=== PATIENT | male | born 1950 | race Caucasian/White ===

== ENCOUNTER 2020-02-25 08:56 | Outpatient (REF) | payer BC, SELFPAY | END 2020-02-25 08:57 | disposition home or self-care (01) | LOC: HO.LAB 08:56 | PROVIDERS: PCP Internal Medicine; Referring Provider Internal Medicine; Visit Provider Urology | DX: R35.1 Nocturia (principal); N40.1 Benign prostatic hyperplasia with lower urinary tract symptoms; N13.8 Other obstructive and reflux uropathy; C67.9 Malignant neoplasm of bladder, unspecified | CPT/HCPCS: 52000; 88112 ==

== ENCOUNTER 2020-03-30 13:30 | Outpatient (RCR) | payer BC, SELFPAY ==
[2020-03-16 13:56] LABS: Glucose Urine UA NEG (NEG); Leukocyte Esterase Urine NEG (NEG); Nitrite Urine NEG (NEG); Urine Blood NEG (NEG); Urine Ketones NEG (NEG); Urine Protein NEG (NEG-TRACE)
[2020-03-16 13:57] VITALS: BMI 19.3
[2020-03-16 13:58] VITALS: BP 158/75; PULSE 53; RESP 18; TEMP 37; O2SAT 99
[2020-03-16 14:02] LABS: Appearance Urine CLEAR; Color Urine YELLOW
[2020-03-16 14:10] LABS: RBC Urine 0 /HPF (0); WBC Urine 0-2 /HPF (0-4)
[2020-03-16] MEDS: Lidocaine HCl 2 % Urojet 10 ML JEL.PF.APP TOPICAL (14:23)
--- NOTE | 2020-03-16 16:38 | MHC.HEMONC ---
Pt here to restart Intravesicular Gemcitabine per Dr Mcdaniel. U/A obtained and looked good. Results securely sent to Dr Mcdaniel for review. OK to proceed. Pt tolerated procedure well. He did a small void in urinal post procedure. His is aware of all post procedure protocols as pt has dementia.
[2020-03-23 14:04] LABS: Glucose Urine UA NEG (NEG); Leukocyte Esterase Urine NEG (NEG); Nitrite Urine NEG (NEG); Specific Gravity - Urine 1.015 (1.005-1.025); Urine Blood NEG (NEG); Urine Ketones NEG (NEG); Urine Protein NEG (NEG-TRACE)
[2020-03-23 14:05] LABS: Appearance Urine HAZY; Color Urine YELLOW
[2020-03-23 14:13] LABS: Amorphous Sediment Urine 1+ /LPF; WBC Urine 0 /HPF (0-4)
[2020-03-23 14:28] VITALS: BMI 19.5
[2020-03-23 14:30] VITALS: BP 113/58; PULSE 58; RESP 18; TEMP 36.6; O2SAT 98
[2020-03-23] MEDS: Lidocaine HCl 2 % Urojet 10 ML JEL.PF.APP TOPICAL (14:52)
--- NOTE | 2020-03-23 16:02 | MHC.HEMONC ---
Pt here for #2/#3 Intravesicular Gemcitabine. Urine report securely texted to Dr Mcdaniel. OK to proceed. Pt aron well and able to hold med in bladder. Pt is forgetful. He was D/C with his accompanying him.
[2020-03-30 14:08] LABS: Glucose Urine UA NEG (NEG); Leukocyte Esterase Urine NEG (NEG); Nitrite Urine NEG (NEG); Specific Gravity - Urine 1.025 (1.005-1.025); Urine Blood NEG (NEG); Urine Ketones 5 MG/DL (NEG); Urine Protein NEG (NEG-TRACE)
[2020-03-30 14:21] LABS: RBC Urine 0-2 /HPF (0)
[2020-03-30 14:22] LABS: Calcium Oxalate Crystals Urine TRACE /LPF; Mucus Urine 2+ /LPF
[2020-03-30 14:43] LABS: Appearance Urine CLEAR; Color Urine YELLOW
[2020-03-30] MEDS: Lidocaine HCl 2 % Urojet 10 ML JEL.PF.APP TOPICAL (14:59)
[2020-03-30 15:20] VITALS: BP 131/68; PULSE 57; RESP 18; TEMP 37.1; O2SAT 99; BMI 19.6
--- NOTE | 2020-03-30 16:43 | MHC.HEMONC ---
Pt here for #3/#3 Intravesicular Gemcitabine. His urine was securely messaged to Dr Mcdaniel and orders given to proceed. Pt aron procedure well and held his urine but did require partial emptying of bladder while here.
== END 2021-02-23 | disposition home or self-care (01) ==
LOC: HO.ONC 13:30
PROVIDERS: PCP Internal Medicine; Visit Provider Urology
DX: Z51.11 Encounter for antineoplastic chemotherapy (principal); C67.9 Malignant neoplasm of bladder, unspecified
CPT/HCPCS: 51720; 81001; J9201

== ENCOUNTER 2020-05-25 07:10 | Day surgery (SDC) | payer BC, SELFPAY ==
[2020-05-25] VITALS (8 sets, daily range): BP systolic 128–149; BP diastolic 57–72; PULSE 55–60; RESP 14–18; TEMP 36.1–37; O2SAT 97–99
--- NOTE | 2020-05-25 07:53 | HO.ANESPROP2 ---
FORMERLY [facility], [facility] Active Problems Active Problems: All Active Problems (Updated 05/20/20 @ 10:53 by eDa Luna) Bladder cancer (Acute) BPH w urinary obs/LUTS (Acute) Nocturia (Acute) Past Medical History Medical History Back pain Bruises easily Cancer Dementia Elevated cholesterol History of chemotherapy Sleep apnea Surgical History Surgical History H/O colonoscopy History of bladder surgery History of uvulopalatopharyngoplasty Hx of hand surgery Social History Social History Are you a primary care coordinator to a significant other at home: No Smoking Status: Former smoker Smoked in Last 30 Days: No Smoking Quit Date: 2007 Use of substances other than those prescribed or required for medical reasons: No Have you been hit, kicked, punched, or otherwise hurt by someone within the past year? If so, by whom?: No Advance Directives Information Provided: No Recently lost weight without trying: No Meds Allergies Allergy/AdvReac Type Severity Reaction Status Date / Time Penicillins [PENICILLINS] Allergy Intermediate throat Verified 05/25/20 07:48 swelling Home Medications Medication Instructions Recorded Confirmed Last Taken Type cyanocobalamin (vitamin B-12) 1,000 mcg PO DAILY 02/25/20 05/20/20 Unknown History 1,000 mcg tablet folic acid 1 mg tablet 1 mg PO DAILY 02/25/20 05/20/20 Unknown History galantamine 24 mg 24 hr 24 mg PO QAM 02/25/20 05/20/20 05/25/20 06:30 History capsule,extended release memantine 10 mg tablet 10 mg PO BID 02/25/20 05/20/20 05/25/20 06:30 History multivitamin 1 tab PO DAILY 02/25/20 05/20/20 Unknown History quetiapine 50 mg tablet 50 mg PO BEDTIME 02/25/20 05/20/20 Unknown History sertraline 25 mg tablet 25 mg PO BEDTIME 02/25/20 05/20/20 Unknown History simvastatin 20 mg tablet 20 mg PO BEDTIME 02/25/20 05/20/20 Unknown History tamsulosin 0.4 mg capsule 0.4 mg PO BEDTIME 02/25/20 05/20/20 Unknown History thiamine HCl (vitamin B1) 100 mg 100 mg PO DAILY 02/25/20 05/20/20 Unknown History tablet docusate sodium [Stool Softener] 200 mg PO BEDTIME 03/16/20 05/20/20 Unknown History finasteride 5 mg PO BEDTIME 05/20/20 05/20/20 Unknown History psyllium husk [Metamucil] 0.8 g PO QAM 05/20/20 05/20/20 Unknown History quetiapine [Seroquel] 25 mg PO QAM 05/20/20 05/20/20 05/25/20 06:30 History Exam Exam Date and Time: May 25, 2020 0753 Height,Weight and Vital Signs: Height 5 ft 7 in Weight 58.06 kg Last Vital Signs Temp 97.3 F 05/25/20 07:48 Pulse 56 05/25/20 07:48 Resp 18 05/25/20 07:48 BP 128/65 05/25/20 07:48 Pulse Ox 97 05/25/20 07:48 Airway Mallampati Class: II TM Dist: >3cm Neck ROM: Full
[2020-05-25] MEDS: Lactated Ringers 1,000 ML 100 ML IVCONT (07:58)
[2020-05-25] MEDS: levoFLOXacin 500 MG TABLET PO (08:50)
--- NOTE | 2020-05-25 09:42 | MHC.SHP ---
Pre-Procedural Eval Section A The patient is an INPATIENT: No Changes since office visit: No Cold of Flu in the past 2 weeks, No New Medical Problems, No Changes in Medication and No Patient answered all questions The History & Physical has been completed within 30 days and I have reviewed it.: Yes Section B Chief Complaint: prostate hyperplasia Allergies: Allergies Allergy/AdvReac Type Severity Reaction Status Date / Time Penicillins [PENICILLINS] Allergy Intermediate throat Verified 05/25/20 07:48 swelling Plan Diagnosis/Plan: Unchanged I have reviewed the history and physical and performed a pertinent physical examination on my patient. No changes have occurred unless specified. Cystoscopy for bladder check plus GreenLight laser enucleation of the prostate
[2020-05-25] MEDS: oxyCODONE HCl Immed Release 5 MG TABLET PO (11:02)
--- NOTE | 2020-05-25 11:12 | PM.OP ---
Brief Operative Note Date of Service: 05/25/20 Pre-op diagnosis: 1. BPH 2. Bladder cancer Post-op diagnosis: same Procedure: 1. Cystoscopy with fulguration of suspicious bladder areas 2. Laser enucleation of the prostate Surgeon: Henrry Mcdaniel MD Anesthesia: GLMA Estimated blood loss (mL): 0 Pathology: none sent Condition: stable Disposition: same day
--- NOTE | 2020-05-25 11:46 | W.PM.OPN ---
Operative Note Operative Note Date of Service: 05/25/20 Narrative: PreOperative Diagnosis: Bladder cancer and BPH Post Operative Diagnosis: Bladder cancer and BPH Procedure: 1. Cystoscopy with fulguration of mucosa erythematous changes - large 2. Laser enucleation of the prostate Surgeon: Dr Henrry Mcdaniel Anesthesia: General Indications for procedure: This is 61 male. Long-standing bladder cancer. Due for cystoscopy. Also with weakness of stream. After discussion with him and his we agreed upon a laser procedure of the prostate. This is try to come off medications. He is aware of the risks and benefits. Procedure: After informed consent was verified the patient was brought to the operating room and placed in a supine position. anesthesia was administered per protocol. Patient was placed in modified dorsal lithotomy position and prepped and draped in a sterile fashion. Safety pause time-out was observed. Antibiotics being given. A 23 [place] laser cystoscope was inserted per urethra. No abnormalities noted in the anterior posterior urethra. The bladder was then examined in its entirety. Both ureteric orifices seen. On the left side wall were small areas of calcification secondary to prior resection sites. The calcifications were knocked free. The sites were then related using a GreenLight laser settings of 80 for hemostasis. On the posterior aspect of the bladder on the right side wall was areas of erythema. There were approximately 6 of these small areas each less than a cm. They were fulgurated using the laser at the low power hemostasis settings. We then also fulgurated wide area of bladder mucosa which showed more subtle changes. 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 Prior cytology is negative When this was completed we proceeded to a BPH procedure. Using laser settings of 80 kw in higher incisions were made at the 5 and 07:00 o'clock. The intermediate intervening stones of prostate were then ablated and enucleated. We then made incisions again at the 11:00 o'clock and 01:00 o'clock positions. These were done on the sidewall. The sidewall areas were then also enucleated and ablated. He did not have a large prostate and total power used was approximately 48 kw. At the end of the procedure the cystoscope was removed. A [address] Jasso catheter with 30 cc balloon was placed. Belladonna suppository was placed for postprocedure pain management. He tolerated procedure well and was extubated in the operating room transferred in a stable condition to the recovery area. Drainage was via back Pathology: No samples were sent Drains: Jasso catheter in place
== END 2020-05-25 12:45 | disposition home or self-care (01) ==
PROVIDERS: PCP Internal Medicine; Visit Provider Urology
PROC: 0V507ZZ Destruction of Prostate, Via Natural or Artificial Opening (ICD-10-PCS; CPT 52648; principal; 2020-05-25 08:40)
DX: N40.1 Benign prostatic hyperplasia with lower urinary tract symptoms (principal); R39.12 Poor urinary stream; C67.9 Malignant neoplasm of bladder, unspecified; Z92.21 Personal history of antineoplastic chemotherapy; F03.90 Unspecified dementia, unspecified severity, without behavioral disturbance, psychotic disturbance, mood disturbance, and anxiety; G47.30 Sleep apnea, unspecified; Z88.0 Allergy status to penicillin; Z79.899 Other long term (current) drug therapy
CPT/HCPCS: 52648; 52240; J1100; J2405; J3010

== ENCOUNTER → 2020-05-28 08:26 | Outpatient (BNVA) | payer BC, SELFPAY | PROVIDERS: PCP Internal Medicine; Visit Provider Urology | DX: C67.9 Malignant neoplasm of bladder, unspecified (principal); N40.1 Benign prostatic hyperplasia with lower urinary tract symptoms; N13.8 Other obstructive and reflux uropathy | CPT/HCPCS: 51798 ==

== ENCOUNTER → 2020-07-03 08:25 | Outpatient (BNVA) | payer BC, SELFPAY | PROVIDERS: PCP Internal Medicine; Visit Provider Urology | DX: N40.1 Benign prostatic hyperplasia with lower urinary tract symptoms (principal); N13.8 Other obstructive and reflux uropathy; R35.1 Nocturia; C67.9 Malignant neoplasm of bladder, unspecified | CPT/HCPCS: 51798; 81002 ==

== ENCOUNTER → 2020-12-02 13:05 | Outpatient (BNVA) | payer BC, SELFPAY | PROVIDERS: PCP Internal Medicine; Visit Provider Urology | DX: N40.1 Benign prostatic hyperplasia with lower urinary tract symptoms (principal); N13.8 Other obstructive and reflux uropathy; R35.1 Nocturia; C67.9 Malignant neoplasm of bladder, unspecified | CPT/HCPCS: 52000 ==